=== PATIENT | female | born 1975 | race Caucasian/White ===

== ENCOUNTER 2016-12-01 09:41 | Emergency (ER) | payer SELFPAY ==
[2016-12-01] MEDS ORDERED: ONDANSETRON 4 MG TAB.RAPDIS PO ONE (10:13)
[2016-12-01] MEDS ORDERED: HYDROCODONE/ACETAMINOPHEN 5-325 MG TABLET PO ONE (10:13)
--- NOTE | 2016-12-01 10:13 | ER Document Report ---
ED Medical Screen (RME) - General TRAVEL OUTSIDE OF THE [place] IN LAST 30 DAYS: No - General Chief Complaint: Abdominal Cramping Stated Complaint: ABDOMINAL,BACK PAIN Time Seen by Provider: 12/01/16 10:06 Notes: Patient is a 41-year-old female presenting to the emergency department for lower abdominal pain and cramping. Patient states that she is on her period now but has not had cramping like this is a very long time. Patient states the cramping started on and her period started on Wednesday. Patient took 800 mg Motrin this morning at 9:00 with some relief to the pain. Patient states that the amount of bleeding she is having is about normal for her menstrual cycle. Patient states her cycle can last up to 2 or 3 weeks. Patient is also had some increased dizziness and nausea. Patient has had 7 D&Cs in the past along with an ectopic , and 1/2 of her ovaries removed bilaterally due to scar tissue. Patient also states she is anemic. (HORTENCIA FLORES) - Related Data Allergies/Adverse Reactions: No Known Allergies Allergy (Verified 12/01/16 09:48) Past Medical History - Social History Cigarette use (# per day): Yes Frequency of alcohol use: None Drug Abuse: None - Past Medical History Cardiac Medical History: Reports: Hx Hypertension - Has not taken blood pressure medicine in the past week and a half. Neurological Medical History: Reports: Hx Migraine. Denies: Hx Seizures Endocrine Medical History: Denies: Hx Diabetes Mellitus Type 2 Renal/ Medical History: Reports: Hx Ectopic . Denies: Hx Peritoneal Dialysis Malignancy Medical History: Reports: Hx Cervical Cancer Past Surgical History: Reports: Hx Gynecologic Surgery - ectopic . Denies: Hx Hysterectomy - half of both ovaries francisca - Immunizations Hx Diphtheria, Pertussis, Tetanus Vaccination: Yes Physical Exam - Vital signs Vitals: Temp Pulse BP Pulse Ox 97.8 F 90 203/114 H 100 12/01/16 09:50 12/01/16 09:50 12/01/16 09:50 12/01/16 09:50 - Notes Notes: GENERAL: Alert, interacts well. No acute distress. LUNGS: No respiratory distress. (HORTENCIA FLORES) Course - Re-evaluation Re-evalutation: 12/01/16 10:14 Due to history of anemia and multiple D&C for dysfunctional uterine bleeding patient will have CBC checked as well as type and screen, IV will be placed given her dizziness. Patient will be evaluated further and results will be reviewed by physician in [place] of the emergency department (ALBINA YI) - Vital Signs Vital signs: Temp Pulse Resp BP Pulse Ox 97.8 F 90 190/101 H 100 12/01/16 09:50 12/01/16 09:50 12/01/16 09:52 12/01/16 09:50 Scribe Documentation - Scribe Written by Maribeth:: Maribeth Saucedo, 12/01/16 10:25 acting as scribe for :: Fide
[2016-12-01 11:00] LABS: ABSOLUTE EOSINOPHILS # (AUTO) 0.2 10^3/uL (0.0-0.6); ABSOLUTE LYMPHOCYTES (AUTO) 1.1 10^3/uL (0.5-4.7); ABSOLUTE MONOCYTES (AUTO) 0.3 10^3/uL (0.1-1.4); ABSOLUTE NEUT (AUTO) 3.5 10^3/uL (1.7-8.2); BASOPHILS % (AUTO) 0.8 % (0-2); EOSINOPHILS % (AUTO) 3.5 % (0-6); HEMATOCRIT 30.2 % (36.0-47.0); HEMOGLOBIN 9.6 g/dL (12.0-15.5); HGB HCT DIFFERENCE -1.4; LYMPHOCYTES % (AUTO) 22.3 % (13-45); MEAN CORPUSCULAR HEMOGLOBIN 23.9 pg (27.0-33.4); MEAN CORPUSCULAR HGB CONC 31.7 g/dL (32.0-36.0); MEAN CORPUSCULAR VOLUME 76 fl (80-97); MONOCYTES % (AUTO) 5.7 % (3-13); RED CELL DISTRIBUTION WIDTH 15.4 % (11.5-14.0); SEGMENTED NEUTROPHILS % (AUTO) 67.7 % (42-78); WHITE BLOOD COUNT 5.1 10^3/uL (4.0-10.5)
[2016-12-01 11:11] LABS: PROTHROMBIN TIME 13.6 SEC (11.4-15.4)
[2016-12-01 11:14] LABS: ALANINE AMINOTRANSFERASE 33 U/L (9-52); ALBUMIN 3.8 g/dL (3.5-5.0); ALKALINE PHOSPHATASE 73 U/L (38-126); ANION GAP 10 (5-19); ASPARTATE AMINO TRANSFERASE 23 U/L (14-36); BILIRUBIN,DIRECT 0.3 mg/dL (0.0-0.4); BILIRUBIN,TOTAL 0.5 mg/dL (0.2-1.3); BLOOD UREA NITROGEN 13 mg/dL (7-20); CARBON DIOXIDE 19 mmol/L (22-30); CHLORIDE 113 mmol/L (98-107); CREATININE RESULT 0.62 mg/dL (0.52-1.25); GLUCOSE 126 mg/dL (75-110); POTASSIUM 4.3 mmol/L (3.6-5.0); SODIUM 141.8 mmol/L (137-145); TOTAL PROTEIN 6.7 g/dL (6.3-8.2)
[2016-12-01] MEDS ORDERED: DICYCLOMINE HCL 20 MG TABLET PO ONE (12:29)
--- NOTE | 2016-12-01 12:35 | ER Document Report ---
ED General - General Chief Complaint: Abdominal Cramping Stated Complaint: ABDOMINAL,BACK PAIN Time Seen by Provider: 12/01/16 10:06 TRAVEL OUTSIDE OF THE [place] IN LAST 30 DAYS: No - HPI Patient complains to provider of: Abdominal cramping Notes: Patient is coming in for evaluation of abdominal cramping. Patient states cramping started approximately one day after starting her menstrual cycle now ongoing for approximately 48-72 hours. Patient states she has a history of ectopic pregnancies requiring D&Cs in the past. Patient states cramping is not normal for her menstrual cycles. Patient denies fevers chills nausea vomiting recent travel or trauma. - Related Data Allergies/Adverse Reactions: No Known Allergies Allergy (Verified 12/01/16 09:48) Past Medical History - Social History Smoking Status: Unknown if Ever Smoked Cigarette use (# per day): Yes Frequency of alcohol use: None Drug Abuse: None Family History: None Patient has suicidal ideation: No Patient has homicidal ideation: No - Past Medical History Cardiac Medical History: Reports: Hx Hypertension - Has not taken blood pressure medicine in the past week and a half. Neurological Medical History: Reports: Hx Migraine. Denies: Hx Seizures Endocrine Medical History: Denies: Hx Diabetes Mellitus Type 2 Renal/ Medical History: Reports: Hx Ectopic . Denies: Hx Peritoneal Dialysis Malignancy Medical History: Reports: Hx Cervical Cancer Past Surgical History: Reports: Hx Gynecologic Surgery - ectopic . Denies: Hx Hysterectomy - Immunizations Hx Diphtheria, Pertussis, Tetanus Vaccination: Yes Review of Systems - Review of Systems Constitutional: No symptoms reported EENT: No symptoms reported Cardiovascular: No symptoms reported Respiratory: No symptoms reported Gastrointestinal: Abdominal pain Genitourinary: No symptoms reported Female Genitourinary: No symptoms reported Musculoskeletal: No symptoms reported Skin: No symptoms reported Hematologic/Lymphatic: No symptoms reported Neurological/Psychological: No symptoms reported Physical Exam - Vital signs Vitals: Temp Pulse BP Pulse Ox 97.8 F 90 203/114 H 100 12/01/16 09:50 12/01/16 09:50 12/01/16 09:50 12/01/16 09:50 Interpretation: Normal - General General appearance: Appears well, Alert - HEENT Head: Normocephalic, Atraumatic Eyes: Normal Pupils: PERRL - Respiratory Respiratory status: No respiratory distress Chest status: Nontender Breath sounds: Normal Chest palpation: Normal - Cardiovascular Rhythm: Regular Heart sounds: Normal auscultation Murmur: No - Abdominal Inspection: Normal Distension: No distension Bowel sounds: Normal Tenderness: Nontender Organomegaly: No organomegaly - Back Back: Normal, Nontender - Extremities General upper extremity: Normal inspection, Nontender, Normal color, Normal ROM , Normal temperature General lower extremity: Normal inspection, Nontender, Normal color, Normal ROM , Normal temperature, Normal weight bearing. No: Moe's sign - Neurological Neuro grossly intact: Yes Cognition: Normal Orientation: AAOx4 [place] Coma Scale Eye Opening: Spontaneous [place] Coma Scale Verbal: Oriented [place] Coma Scale Motor: Obeys Commands [place] Coma Scale Total: 15 Speech: Normal Motor strength normal: LUE, RUE, LLE, RLE Sensory: Normal - Psychological Associated symptoms: Normal affect, Normal mood - Skin Skin Temperature: Warm Skin Moisture: Dry Skin Color: Normal Course - Re-evaluation Re-evalutation: 12/01/16 18:57 Patient is coming in for evaluation of abdominal cramping. Patient's hemoglobin is alert anemic no need for transfusion at this time. Patient not at this time. The probability of ectopic at this time. Patient was encouraged to continue take multivitamins iron to help with anemia and follow-up with her [facility] for her dysmenorrhea. - Vital Signs Vital signs: Temp Pulse Resp BP Pulse Ox 97.4 F 65 18 159/99 H 99 12/01/16 12:47 12/01/16 12:47 12/01/16 12:47 12/01/16 12:47 12/01/16 12:47 - Laboratory Result Diagrams: 12/01/16 10:25 12/01/16 10:25 Laboratory results interpreted by me: 12/01/16 12/01/16 10:25 10:25 Hgb 9.6 L Hct 30.2 L MCV 76 L MCH 23.9 L MCHC 31.7 L RDW 15.4 H Chloride 113 H Carbon Dioxide 19 L Glucose 126 H Discharge - Discharge Clinical Impression: Abdominal cramping Anemia Qualifiers: Anemia type: unspecified type Qualified Code(s): D64.9 - Anemia, unspecified Condition: Good Disposition: HOME, SELF-CARE Instructions: Dysmenorrhea ([facility]), Ob-[employer] [facility], [facility]emia ([facility]) Additional Instructions: Please follow-up with the clinic provided already [facility]. You may take the medication prescribed along with Tylenol and Motrin for pain control. Your blood work does show some mild anemia I would recommend taking a over-the- counter vitamin with iron in it Prescriptions: Dicyclomine HCl [Bentyl 20 mg Tablet] 20 mg PO QID #30 tablet Forms: Return to Work
[2016-12-01 12:48] VITALS: BP 159/99
== END 2016-12-01 12:47 | disposition home or self-care (01) ==
LOC: ER 09:41
DX: N94.6 Dysmenorrhea, unspecified (principal); D64.9 Anemia, unspecified; R10.9 Unspecified abdominal pain; I10 Essential (primary) hypertension; Z85.41 Personal history of malignant neoplasm of cervix uteri; Z87.59 Personal history of other complications of pregnancy, childbirth and the puerperium; Z98.890 Other specified postprocedural states
CPT/HCPCS: 99284; 86900; 86901; 36415; 86850; 84702; 84703; 85025; 85610; 80053; J3490; S0119